=== PATIENT | male | born 1965 | race Hispanic/Latino ===

== ENCOUNTER → 2023-12-06 | Outpatient (CLI) | payer MEDICARE ==
[2023-12-06 21:56] VITALS: PULSE 70; RESP 16
[2023-12-06 22:30] VITALS: PULSE 70; RESP 18
[2023-12-06 23:00] VITALS: PULSE 70; RESP 16
[2023-12-06 23:30] VITALS: PULSE 74; RESP 20
[2023-12-07] VITALS (8 sets, daily range): PULSE 64–82; RESP 14–20
== END | disposition home or self-care (01) ==
LOC: SLP 20:22
PROVIDERS: ATTEND Family Medicine
DX: G47.33 Obstructive sleep apnea (adult) (pediatric) (principal); R06.83 Snoring
CPT/HCPCS: 95811

== ENCOUNTER 2024-11-26 05:52 | Day surgery (SDC) | payer MEDICARE ==
[2024-11-26] VITALS (13 sets, daily range): BP systolic 112–175; BP diastolic 59–90; PULSE 68–87; RESP 14–18; TEMP 97.6–97.8; O2SAT 100
[~2024-11-26] VITALS: Ht 175.3 cm; Wt 181.4 kg
[~2024-11-26 05:52] MED LIST: ALPR-412 PO; AMLO-257 PO; APIX5TAB PO; BRIM15OS OU; CARV25TA PO; CLOB15GE2 TP; DICL100G60 TP; FLUT1BLS15 IH; GABA-529 PO; GLUCOVANCE PO; HYDR12.54 PO; HYOS-14 PO; INSU100I3 SQ; INSU10VI3 SQ; KETO120S13 TP; LANTANOPROST OU; LEVA1.255 IH; LISI40TA9 PO; NETA2.5D3 OU; OFLO5DRO OU; OZEMPIC SQ; PANT40TA55 PO; SERT-439 PO; TACR30OI TP; TRAZ-185 PO; TRIAM15CRM TP
[2024-11-26] MEDS: 0.9%NACL 1000ML 1,000 ML IV ONE (07:16)
[2024-11-26] MEDS ORDERED: proPOFol 10 MG/ML 20ML VIAL IV ONE ×2 (07:47→08:15)
[2024-11-26] MEDS ORDERED: GLYCOPYRROLATE 0.2 MG/ML 5 ML VIAL ONE (07:47)
[2024-11-26] MEDS ORDERED: FENTanyl CITRate PF 50 MCG/1 ML 2ML VIAL ONE (07:48)
[2024-11-26] MEDS ORDERED: ondanSETRON 4MG INJ ONE (07:49)
== END 2024-11-26 09:59 | disposition home or self-care (01) ==
LOC: DAH 05:52 → ENDO 05:52
PROVIDERS: ATTEND Surgery
DX: K30 Functional dyspepsia (principal); K29.50 Unspecified chronic gastritis without bleeding; K31.89 Other diseases of stomach and duodenum; K22.89 Other specified disease of esophagus; K31.7 Polyp of stomach and duodenum; G47.33 Obstructive sleep apnea (adult) (pediatric); I10 Essential (primary) hypertension; E11.9 Type 2 diabetes mellitus without complications; E66.01 Morbid (severe) obesity due to excess calories; J44.9 Chronic obstructive pulmonary disease, unspecified; F41.9 Anxiety disorder, unspecified; F32.A Depression, unspecified; I48.91 Unspecified atrial fibrillation; Z99.3 Dependence on wheelchair; Z68.44 Body mass index [BMI] 60.0-69.9, adult; Z99.89 Dependence on other enabling machines and devices; Z79.01 Long term (current) use of anticoagulants; Z79.4 Long term (current) use of insulin; Z79.899 Other long term (current) drug therapy
CPT/HCPCS: 43251; 43239; 82948 ×2; 94660; J3010; J7030; J2704 ×2; J2405; J3490; A4215